=== PATIENT | male | born 1985 | race African-American/Black ===

== ENCOUNTER 2024-02-22 19:08 | Emergency (ER) | payer OTHER ==
[~2024-02-22] VITALS: Ht 175.3 cm; Wt 83.9 kg
[2024-02-22] MEDS ORDERED: KETOROLAC TROMETHAMINE 60 MG VIAL IM STA (21:19)
[2024-02-22] MEDS ORDERED: ACETAMINOPHEN 500 MG GEL..CAP PO STA (21:19)
[2024-02-22 21:46] LABS: HEMATOCRIT 43.5 % (39.0-48.0); HEMOGLOBIN 14.6 g/dL (13-16.00); MEAN CELL VOLUME 91.1 fL (80.0-100.00); MEAN CORPUSCULAR HEMOGLOBIN 30.5 pg (27.00-32.0); MEAN CORPUSCULAR HGB CONC 33.5 g/dl (32.0-36.0); PLATELET COUNT 205 K/uL (150-450); RED BLOOD COUNT 4.78 M/uL (4.00-6.00); RED CELL DISTRIBUTION WIDTH 12.6 % (11.5-14.5)
== END 2024-02-22 23:33 | disposition home or self-care (01) ==
LOC: ER 19:10
DX: J06.9 Acute upper respiratory infection, unspecified (principal); Z20.822 Contact with and (suspected) exposure to COVID-19